=== PATIENT | female | born 1995 | race Caucasian/White ===

== ENCOUNTER 2020-04-07 09:22 | Inpatient (IN) | payer OTHER ==
[~2020-04-07] VITALS: Ht 157.5 cm; Wt 54.0 kg
--- NOTE | 2020-04-07 | NUR ---
NURSE NOTES: INFORMED OF PATIENT'S CBC RESULTS OF 13.5. RECEIVED ORDERS TO CALL MD IF HBG DROPS BELOW 12. WILL FOLLOW UP WITH THE NEXT CBC DRAWS. Addendum: 04/08/20 at 0224 by Shelly Singh RN WRONG TIME STAMP.
--- NOTE | 2020-04-07 09:35 | NUR ---
ED Nurse Note: Pt from home walked in due to vaginal bleeding and lower abd cramping. Pt states she had intermittent light spotting x 1 month and unable to remember her LMP. Also reports, her bleeding started to get heavy this past few days. Hx of miscarriage. AAO x4 ambulatory with non labored breathing.
--- NOTE | 2020-04-07 09:50 | Emergency Room Report ---
History of Present Illness General Chief Complaint: Complications Source: Patient Present Illness HPI Disclaimer: Please note that this report is being documented using [employer] technology. This can lead to erroneous entry secondary to incorrect interpretation by the dictating instrument. HPI: 24-year-old female female approximately 6 weeks by dates presents for vaginal bleeding. Patient states that she was diagnosed with last week. Had an ultrasound that did not demonstrate any evidence of IUP, has been followed by her primary doctor however for the past 2 days patient has had vaginal spotting. With abdominal cramping. Cramping is approximately 10 out of 10 lower abdomen and nonradiating. Nothing makes it better or worse. She denies any fevers. She does complain of nausea and occasional vomiting. Allergies: Coded Allergies: SULFA (SULFONAMIDE ANTIBIOTICS) (Verified Allergy, Severe, Rash, 04/07/20) COVID-19 Screening Contact w/high risk pt: No Recent Travel to affected area: No Experienced COVID-19 symptoms?: No Patient History Last Menstrual Period: unk Now: Yes : 2 Para: 0 Reviewed Nursing Documentation: PMH: Agreed; PSxH: Agreed Nursing Documentation-PMH Past Medical History: No Stated History Review of Systems All Other Systems: negative except mentioned in HPI Physical Exam Vital Signs Date Time Temp Pulse Resp B/P (MAP) Pulse Ox O2 Delivery O2 Flow Rate FiO2 04/07/20 09:28 98.1 77 18 135/97 (110) 98 Room Air Sp02 EP Interpretation: reviewed, normal General Appearance: well appearing, no apparent distress Head: normocephalic, atraumatic Eyes: bilateral eye PERRL, bilateral eye EOMI ENT: hearing grossly normal, moist mucus membranes Neck: full range of motion, supple Respiratory: lungs clear, normal breath sounds, no rhonchi, no respiratory distress, no retraction, no wheezing Cardiovascular #1: normal peripheral pulses, regular rate, rhythm, no murmur Gastrointestinal: soft, non-distended, no guarding, tenderness - Suprapubic tenderness noted Neurologic: alert, oriented x3, no focal defects Skin: normal color, warm/dry Procedures Critical Care Time Critical Care Time Critical care time is made on the patient due to presentation with possible ectopic concerning for ruptured ectopic . Critical care time is approximately 40 minutes and excludes procedures. This included discussion with consultants. Medical Decision Making Diagnostic Impression: Primary Impression: Possible ruptured ectopic Additional Impression: Lower abdominal pain ER Course MDM-patient presented for lower abdominal pain and vaginal bleeding. This is an early . Differential included but not limited to spontaneous miscarriage, threatened miscarriage, ectopic , UTI to name a few. Laboratory studies were ordered hCG ordered IV fluids and Zofran given, analgesics given ultrasound ordered. Clinical course-patient hCG was around 769. Previous hCG 1 week ago was 790. Ultrasound demonstrated concern for possible ruptured ectopic . There was free fluid in the abdomen. Obvious IUP visualized. I spoke with QUALITATIVE FIELD PROJECT MANAGER, Dr. Davila who did consult on the patient. At this time she did not recommend emergent surgical intervention as patient had a normal hemoglobin with stable vital signs and it is possible patient has a ruptured ovarian cyst in addition to a spontaneous miscarriage. Patient's hemoglobin was 16 repeat hemoglobin 14.. Plan is to observe patient overnight in the hospital with serial exams and serial hemoglobin. She was admitted to the hospitalist. Patient updated at bedside. Laboratory Tests Test 04/07/20 09:33 04/07/20 10:00 04/07/20 13:17 White Blood Count 5.1 K/UL (4.8-10.8) 10.2 K/UL (4.8-10.8) # Red Blood Count 5.01 M/UL (4.20-5.40) 4.41 M/UL (4.20-5.40) Hemoglobin 16.1 G/DL (12.0-16.0) H 14.2 G/DL (12.0-16.0) Hematocrit 45.0 % (37.0-47.0) 39.5 % (37.0-47.0) Mean Corpuscular Volume 90 FL (80-99) 90 FL (80-99) Mean Corpuscular Hemoglobin 32.1 PG (27.0-31.0) H 32.2 PG (27.0-31.0) H Mean Corpuscular Hemoglobin Concent 35.7 G/DL (32.0-36.0) 36.0 G/DL (32.0-36.0) Red Cell Distribution Width 10.8 % (11.6-14.8) L 10.7 % (11.6-14.8) L Platelet Count 293 K/UL (150-450) 264 K/UL (150-450) Mean Platelet Volume 7.3 FL (6.5-10.1) 7.7 FL (6.5-10.1) Neutrophils (%) (Auto) 57.7 % (45.0-75.0) 81.2 % (45.0-75.0) H Lymphocytes (%) (Auto) 34.2 % (20.0-45.0) 14.1 % (20.0-45.0) L Monocytes (%) (Auto) 5.7 % (1.0-10.0) 3.9 % (1.0-10.0) Eosinophils (%) (Auto) 1.0 % (0.0-3.0) 0.2 % (0.0-3.0) Basophils (%) (Auto) 1.4 % (0.0-2.0) 0.6 % (0.0-2.0) Urine Color Yellow Urine Appearance Clear Urine pH 6 (4.5-8.0) Urine Specific [place] 1.025 (1.005-1.035) Urine Protein 1+ (NEGATIVE) H Urine Glucose (UA) Negative (NEGATIVE) Urine Ketones 3+ (NEGATIVE) H Urine Blood 5+ (NEGATIVE) H Urine Nitrite Negative (NEGATIVE) Urine Bilirubin Negative (NEGATIVE) Urine Urobilinogen Normal MG/DL (0.0-1.0) Urine Leukocyte Esterase Negative (NEGATIVE) Urine RBC 10-15 /HPF (0 - 2) H Urine WBC 0-2 /HPF (0 - 2) Urine Squamous Epithelial Cells Many /LPF (NONE/OCC) H Urine Bacteria Few /HPF (NONE) Urine HCG, Qualitative Positive (NEGATIVE) Sodium Level 143 MMOL/L (136-145) Potassium Level 3.9 MMOL/L (3.5-5.1) Chloride Level 104 MMOL/L (98-107) Carbon Dioxide Level 27 MMOL/L (21-32) Anion Gap 12 mmol/L (5-15) Blood Urea Nitrogen 11 mg/dL (7-18) Creatinine 0.8 MG/DL (0.55-1.30) Estimated Glomerular Filtration Rate > 60 mL/min (>60) Glucose Level 98 MG/DL (74-106) Calcium Level 9.3 MG/DL (8.5-10.1) Total Bilirubin 2.9 MG/DL (0.2-1.0) H Direct Bilirubin 0.3 MG/DL (0.0-0.3) Aspartate Amino Transferase (AST) 23 U/L (15-37) Alanine Aminotransferase (ALT) 22 U/L (12-78) Alkaline Phosphatase 54 U/L (46-116) Total Protein 8.0 G/DL (6.4-8.2) Albumin 4.6 G/DL (3.4-5.0) Globulin 3.4 g/dL Albumin/Globulin Ratio 1.4 (1.0-2.7) Human Chorionic Gonadotropin, Quant 769 mIU/mL (1-6) H Prothrombin Time 10.4 SEC (9.30-11.50) Prothrombin Time INR 1.0 (0.9-1.1) Activated Partial Thromboplast Time 25 SEC (23-33) Last Vital Signs Date Time Temp Pulse Resp B/P (MAP) Pulse Ox O2 Delivery O2 Flow Rate FiO2 04/07/20 09:28 98.1 77 18 135/97 (110) 98 Room Air Disposition: ADMITTED INPATIENT Condition: Serious Physician Consult: Juan R Colby M.D. April 07, 2020 09:50
--- NOTE | 2020-04-07 10:11 | NUR ---
ED Nurse Note: Collected blood/urine then sent. US staff at the bed side.
[2020-04-07 10:18] LABS: BASOPHILS % (AUTO) 1.4 % (0.0-2.0); HEMOGLOBIN 16.1 G/DL (12.0-16.0); LYMPHOCYTES % (AUTO) 34.2 % (20.0-45.0); MEAN CORPUSCULAR VOLUME 90 FL (80-99); MONOCYTES % (AUTO) 5.7 % (1.0-10.0); NEUTROPHILS % (AUTO) 57.7 % (45.0-75.0); PLATELET COUNT 293 K/UL (150-450); RED BLOOD COUNT 5.01 M/UL (4.20-5.40); RED CELL DISTRIBUTION WIDTH 10.8 % (11.6-14.8); WHITE BLOOD COUNT 5.1 K/UL (4.8-10.8)
[2020-04-07 10:28] LABS: ANION GAP 12 mmol/L (5-15); BLOOD UREA NITROGEN 11 mg/dL (7-18); CALCIUM 9.3 MG/DL (8.5-10.1); CARBON DIOXIDE 27 MMOL/L (21-32); CHLORIDE 104 MMOL/L (98-107); CREATININE 0.8 MG/DL (0.55-1.30); POTASSIUM 3.9 MMOL/L (3.5-5.1); SODIUM 143 MMOL/L (136-145)
[2020-04-07 10:33] VITALS: BP 121/81
[2020-04-07 10:35] LABS: ALANINE AMINOTRANSFERASE 22 U/L (12-78); ALBUMIN 4.6 G/DL (3.4-5.0); ALBUMIN/GLOBULIN RATIO 1.4 (1.0-2.7); ALKALINE PHOSPHATASE 54 U/L (46-116); ASPARTATE AMINO TRANSFERASE 23 U/L (15-37); BILIRUBIN,TOTAL 2.9 MG/DL (0.2-1.0)
[2020-04-07 10:43] LABS: APPEARANCE,URINE CLEAR; BILIRUBIN, URINE NEGATIVE (NEGATIVE); GLUCOSE, URINE (UA) NEGATIVE (NEGATIVE); KETONES,URINE 3+ (NEGATIVE); LEUKOCYTE ESTERASE ,URINE NEGATIVE (NEGATIVE); NITRITE,URINE NEGATIVE (NEGATIVE); PH,URINE 6 (4.5-8.0); PROTEIN,URINE 1+ (NEGATIVE); UROBILINOGEN,URINE NORMAL MG/DL (0.0-1.0)
[2020-04-07 10:45] LABS: COLOR,URINE YELLOW
--- NOTE | 2020-04-07 10:45 | NUR ---
ED Nurse Note: Called denise from lab to ff up with add on order of PT/PTT.
[2020-04-07 10:54] LABS: BILIRUBIN,DIRECT 0.3 MG/DL (0.0-0.3)
--- NOTE | 2020-04-07 10:59 | NUR ---
HAND-OFF: Report given to Ernesto BARNES.
--- NOTE | 2020-04-07 11:00 | NUR ---
ED Nurse Note: Received report from Stefanie BARNES. Pt alert and oriented,verbally responsive. Ambulatory. Not in any distress.
--- NOTE | 2020-04-07 11:17 | Diagnostic Imaging Report ---
Indication: Pelvic pain, positive test, beta hCG 769, vaginal bleeding Technique: Transabdominal and transvaginal images. Doppler interrogation of the ovaries Comparison: none Findings: The uterus measures 6.8 cm length by 3.1 cm AP. The endometrium measures 2 mm thick. No intrauterine demonstrated. No myometrial abnormality. There is a moderate moderate to large amount of free pelvic fluid. The right ovary measures 3 cm in length, demonstrates normal blood flow. There is what appears to be some hyperechoic material surrounding the right ovary. This could represent blood. No definite adnexal gestational sac demonstrated, however. The left ovary measures 3.5 cm in length. It demonstrates normal blood flow. Impression: No intrauterine demonstrated. Differential considerations include spontaneous , very early , ectopic Material surrounding the right ovary may represent blood. This raises concern for possible ruptured ectopic in this area, although a gestational sac is not demonstrated. Correlate with clinical findings. Considerable free pelvic fluid. Findings discussed by phone with Dr. Lopez in the emergency room at the time of interpretation
[2020-04-07 12:00] VITALS: BP 119/76
--- NOTE | 2020-04-07 13:21 | NUR ---
ED Nurse Note: repeat cbc blood samples sent to lab
[2020-04-07 14:00] VITALS: BP 126/82
[2020-04-07 14:00] LABS: BASOPHILS % (AUTO) 0.6 % (0.0-2.0); EOSINOPHILS % (AUTO) 0.2 % (0.0-3.0); HEMATOCRIT 39.5 % (37.0-47.0); HEMOGLOBIN 14.2 G/DL (12.0-16.0); LYMPHOCYTES % (AUTO) 14.1 % (20.0-45.0); MEAN CORPUSCULAR VOLUME 90 FL (80-99); MONOCYTES % (AUTO) 3.9 % (1.0-10.0); NEUTROPHILS % (AUTO) 81.2 % (45.0-75.0); PLATELET COUNT 264 K/UL (150-450); RED BLOOD COUNT 4.41 M/UL (4.20-5.40); RED CELL DISTRIBUTION WIDTH 10.7 % (11.6-14.8); WHITE BLOOD COUNT 10.2 K/UL (4.8-10.8)
--- NOTE | 2020-04-07 14:54 | Consultation ---
Consult Note Consult Note GYNECOLOGY CONSULTATION REPORT CC: Vaginal bleeding, r/o ectopic HPI: Patient is a 24yo who presents with 2 day history of intermittent [id number] lower abdominal pain and vaginal bleeding. Patient had a positive test and ultrasound last week, however no IUP and Beta-hCG last week was 790. She reports that she has been spotting for the last 3-4d but 2d ago her bleeding became heavier and was associated with cramping in her lower abdomen that radiated to her RLQ. She reports occasional RUQ pain and discomfort with taking a deep breath, however her pain is not exacerbated by laying flat. She appears overall comfortable and is in no acute distress. Her pain is currently mild, however it has waxed and waned over the last 2 days and she fears it could return severe once more. Today her ultrasound was notable for free fluid and some fluid collections around the right ovary however no clear ectopic noted, and free fluid not necessarily consistent with hemoperitoneum. She states that her pain is improved s/p Tylenol and she is considering leaving AMA. She has follow up ultrasound scheduled for Saturday through her PCP. PMH: Denies hx of HTN, DM, asthma, or thyroid dz PSH: D&C for TAB 5y ago MEDS: None ALLERGIES: Sulfa (rash) OBHX: - TAB x 1, D&C - 5y ago GYNHX: Last INNOVATION MANAGER visit 2y ago, no hx abnl Pap, no known hx of cysts or fibroids SOCHX: Lives with roommate, is self-supporting. Not in contact with family. Denies regular use of T/E/D, occasional marijuana and alcohol FAMHX: History of colon CA on mother's side, last known family member affected was a great grandparent VITALS: Pulse 66, BP 119/76, O2 99% RA, RR 18, T 98.1F EXAM: Gen: NAD, sitting up in bed, appears comfortable HEENT: OP clear, MMM Neck: No gross thyromegaly CV: No tachycardia Pulm: No increased work of breathing, no orthopnea or pain on deep inspiration during exam Abd: Soft, mild to moderate TTP in RLQ, moderate TTP in suprapubic region, no rebound or guarding, no peritoneal signs Pelvic: NEFG, no masses or lesions. Bimanual revealed scant dark red blood in vault, cervix closed, mild TTP in bladder region Ext: no calf TTP MSK: FROM Neuro: Intact grossly LABS: Test 04/07/20 09:33 04/07/20 10:00 04/07/20 13:17 White Blood Count 5.1 K/UL (4.8-10.8) 10.2 K/UL (4.8-10.8) # Red Blood Count 5.01 M/UL (4.20-5.40) 4.41 M/UL (4.20-5.40) Hemoglobin 16.1 G/DL (12.0-16.0) H 14.2 G/DL (12.0-16.0) Hematocrit 45.0 % (37.0-47.0) 39.5 % (37.0-47.0) Mean Corpuscular Volume 90 FL (80-99) 90 FL (80-99) Mean Corpuscular Hemoglobin 32.1 PG (27.0-31.0) H 32.2 PG (27.0-31.0) H Mean Corpuscular Hemoglobin Concent 35.7 G/DL (32.0-36.0) 36.0 G/DL (32.0-36.0) Red Cell Distribution Width 10.8 % (11.6-14.8) L 10.7 % (11.6-14.8) L Platelet Count 293 K/UL (150-450) 264 K/UL (150-450) Mean Platelet Volume 7.3 FL (6.5-10.1) 7.7 FL (6.5-10.1) Neutrophils (%) (Auto) 57.7 % (45.0-75.0) 81.2 % (45.0-75.0) H Lymphocytes (%) (Auto) 34.2 % (20.0-45.0) 14.1 % (20.0-45.0) L Monocytes (%) (Auto) 5.7 % (1.0-10.0) 3.9 % (1.0-10.0) Eosinophils (%) (Auto) 1.0 % (0.0-3.0) 0.2 % (0.0-3.0) Basophils (%) (Auto) 1.4 % (0.0-2.0) 0.6 % (0.0-2.0) Urine Color Yellow Urine Appearance Clear Urine pH 6 (4.5-8.0) Urine Specific [place] 1.025 (1.005-1.035) Urine Protein 1+ (NEGATIVE) H Urine Glucose (UA) Negative (NEGATIVE) Urine Ketones 3+ (NEGATIVE) H Urine Blood 5+ (NEGATIVE) H Urine Nitrite Negative (NEGATIVE) Urine Bilirubin Negative (NEGATIVE) Urine Urobilinogen Normal MG/DL (0.0-1.0) Urine Leukocyte Esterase Negative (NEGATIVE) Urine RBC 10-15 /HPF (0 - 2) H Urine WBC 0-2 /HPF (0 - 2) Urine Squamous Epithelial Cells Many /LPF (NONE/OCC) H Urine Bacteria Few /HPF (NONE) Urine HCG, Qualitative Positive (NEGATIVE) Sodium Level 143 MMOL/L (136-145) Potassium Level 3.9 MMOL/L (3.5-5.1) Chloride Level 104 MMOL/L (98-107) Carbon Dioxide Level 27 MMOL/L (21-32) Anion Gap 12 mmol/L (5-15) Blood Urea Nitrogen 11 mg/dL (7-18) Creatinine 0.8 MG/DL (0.55-1.30) Estimated Glomerular Filtration Rate > 60 mL/min (>60) Glucose Level 98 MG/DL (74-106) Calcium Level 9.3 MG/DL (8.5-10.1) Total Bilirubin 2.9 MG/DL (0.2-1.0) H Direct Bilirubin 0.3 MG/DL (0.0-0.3) Aspartate Amino Transferase (AST) 23 U/L (15-37) Alanine Aminotransferase (ALT) 22 U/L (12-78) Alkaline Phosphatase 54 U/L (46-116) Total Protein 8.0 G/DL (6.4-8.2) Albumin 4.6 G/DL (3.4-5.0) Globulin 3.4 g/dL Albumin/Globulin Ratio 1.4 (1.0-2.7) Human Chorionic Gonadotropin, Quant 769 mIU/mL (1-6) H Prothrombin Time 10.4 SEC (9.30-11.50) Prothrombin Time INR 1.0 (0.9-1.1) Activated Partial Thromboplast Time 25 SEC (23-33) IMAGING: Pelvic US: Findings: The uterus measures 6.8 cm length by 3.1 cm AP. The endometrium measures 2 mm thick. No intrauterine demonstrated. No myometrial abnormality. There is a moderate moderate to large amount of free pelvic fluid. The right ovary measures 3 cm in length, demonstrates normal blood flow. There is what appears to be some hyperechoic material surrounding the right ovary. This could represent blood. No definite adnexal gestational sac demonstrated, however. The left ovary measures 3.5 cm in length. It demonstrates normal blood flow. Impression: No intrauterine demonstrated. Differential considerations include spontaneous , very early , ectopic Material surrounding the right ovary may represent blood. This raises concern for possible ruptured ectopic in this area, although a gestational sac is not demonstrated. Correlate with clinical findings. Considerable free pelvic fluid. Assessment/Plan 24yo with of unknown location, r/o ectopic - Patient does not have an acute abdomen and her Beta-hCG has not risen from previous (790 last week, 769 today) - Patient received 1L IV fluids in ER, drop in H/H could be dilutional, thus recommend serial CBCs to monitor for bleeding (in conjunction with clinical picture) - Unclear if patient had a spontaneous loss (miscarriage) given her heavier bleeding with midline cramping over the last 2 days - No clear ectopic on US and no peritoneal signs, therefore no indication for emergent surgery at this time, however I recommend inpatient monitoring and serial labs - Differential diagnosis discussed with the patient at length - DDx includes SAB , ectopic, ruptured cyst - Patient is considering leaving A because she feels her condition has overall improved s/p Tylenol in the ED and is concerned about cost. She states that she has follow up with her PCP and repeat US scheduled for Saturday - Discussed with the patient that if her pain worsens or her labs show any sign of worsening clinical condition, I would recommend diagnostic laparoscopy - Recommend NPO, repeat Beta-hCG every 12 hours, repeat CBC every 6 hours and IV fluids for hydration - Will monitor patient condition and determine need for OR within 24 hours - Patient counseled against leaving AMA, however she desires time to decide and will discuss with ED physician - All questions answered Thank you for this interesting consult. Signed: MD Giovanni Naidu Carla M.D. April 07, 2020 14:54
[2020-04-07 16:00] VITALS: BP 121/73
--- NOTE | 2020-04-07 16:13 | NUR ---
ED Nurse Note: Patient able to walk to the restroom with stable gait.
--- NOTE | 2020-04-07 17:30 | NUR ---
NURSE NOTES: received report from CAMERON Spears. patient will be admitted to room 403-[address] nabila urbano.
--- NOTE | 2020-04-07 17:38 | NUR ---
ED Nurse Note: Report given to Joaquin BARNES.
[2020-04-07 18:15] VITALS: BP 118/70
--- NOTE | 2020-04-07 18:15 | NUR ---
TRANSFER TO FLOOR: Patient transferred to [facility]. Report given to Joaquin. Pt alert and orientedx4, verbally responsive. Not in any distress. IV line on left AC 20g patent and intact. No skin issues. No isolation. All belongings sent with the patient.
--- NOTE | 2020-04-07 18:25 | NUR ---
NURSE NOTES: patient is admitted under care dx of possible miscarriage. no respiratory distress noted. pain on abd area. skin intact. vaginal bleeding. no hx of dz. no home medications. IV on LAC 20 intact. will f/u for new admission orders.
--- NOTE | 2020-04-07 18:33 | NUR ---
NURSE NOTES: patient is crying for the pain 10/10. notified Dr. dahl for pain meds and new admission orders.
--- NOTE | 2020-04-07 18:48 | NUR ---
NURSE NOTES: VS. BP136/72, HR67, RR 20, T97.5, O2sat 99% on room air.
[2020-04-07] MEDS ORDERED: Morphine Sulfate 2mg/ml Inj(IV/IM USE ONLY) IVP PRN (19:00)
[2020-04-07] MEDS ORDERED: Morphine Sulfate 4mg/ml Inj (IV USE ONLY) IVP PRN (19:00)
--- NOTE | 2020-04-07 19:24 | NUR ---
HAND-OFF: Report given to CAMERON Bravo.
--- NOTE | 2020-04-07 19:30 | NUR ---
NURSE NOTES: RECEIVED PATIENT FROM CAMERON BUCKNER. PATIENT IS AWAKE, AAOX4, ON ROOM AIR, C/O 10/10 PAIN IN ABDOMEN RADIATING TO BACK AND CHEST. RECEIVED ORDERS FROM DR. WITT FOR PRN PAIN MEDS, WILL FOLLOW UP. PATIENT REPORTED MODERATE VAGINAL BLEEDING. IV ON LEFT AC INTACT AND PATENT. BED IS LOCKED AND LOW, BED ALARMS ACTIVE, SIDE RAILS UPX2 AND CALL LIGHT IS WITHIN REACH. WILL CONTINUE TO MONITOR.
--- NOTE | 2020-04-07 20:00 | NUR ---
NURSE NOTES: SPOKE TO DR. BRITO REGARDING PATIENT'S CONDITION. RECEIVED ORDERS FOR CBC AND BHCG LABS. WILL FOLLOW UP RESULTS WITH .
[2020-04-07 20:53] VITALS: BP 136/72
[2020-04-07] MEDS: D5NS 1,000 ML IV SCH (21:37)
--- NOTE | 2020-04-07 22:10 | NUR ---
NURSE NOTES: RECEIVED ADMISSION ORDERS FROM DR. WITT. INFORMED MD OF PATIENT'S CONDITION.
[2020-04-07 22:39] LABS: BASOPHILS % (AUTO) 0.9 % (0.0-2.0); EOSINOPHILS % (AUTO) 0.3 % (0.0-3.0); HEMATOCRIT 40.7 % (37.0-47.0); HEMOGLOBIN 13.5 G/DL (12.0-16.0); LYMPHOCYTES % (AUTO) 21.1 % (20.0-45.0); MEAN CORPUSCULAR VOLUME 96 FL (80-99); MONOCYTES % (AUTO) 4.2 % (1.0-10.0); NEUTROPHILS % (AUTO) 73.6 % (45.0-75.0); PLATELET COUNT 258 K/UL (150-450); RED BLOOD COUNT 4.25 M/UL (4.20-5.40); RED CELL DISTRIBUTION WIDTH 11.6 % (11.6-14.8); WHITE BLOOD COUNT 8.5 K/UL (4.8-10.8)
[2020-04-08] VITALS: BP 106/55
--- NOTE | 2020-04-08 | NUR ---
NURSE NOTES: INFORMED OF PATIENT'S CBC RESULTS OF 13.5. RECEIVED ORDERS TO CALL MD IF HBG DROPS BELOW 12. WILL FOLLOW UP WITH THE NEXT CBC DRAWS.
[2020-04-08 04:00] VITALS: BP 110/62
[2020-04-08] MEDS: D5NS 1,000 ML IV SCH ×3 (04:17→20:15)
[2020-04-08 05:22] LABS: BASOPHILS % (AUTO) 1.2 % (0.0-2.0); EOSINOPHILS % (AUTO) 0.7 % (0.0-3.0); HEMOGLOBIN 12.8 G/DL (12.0-16.0); LYMPHOCYTES % (AUTO) 31.1 % (20.0-45.0); MEAN CORPUSCULAR VOLUME 89 FL (80-99); MONOCYTES % (AUTO) 7.3 % (1.0-10.0); NEUTROPHILS % (AUTO) 59.7 % (45.0-75.0); PLATELET COUNT 231 K/UL (150-450); RED BLOOD COUNT 3.94 M/UL (4.20-5.40); RED CELL DISTRIBUTION WIDTH 10.5 % (11.6-14.8)
[2020-04-08 05:45] LABS: PHOSPHORUS 4.1 MG/DL (2.5-4.9)
--- NOTE | 2020-04-08 07:50 | NUR ---
NURSE NOTES: Received report from Shelly, RN. Patient in bed, sleeping. On room air, no signs of distress or labored breathing. IV intact, patent, and infusing IV fluids. Bed in lowest position with call light in reach. Will continue with plan of care.
--- NOTE | 2020-04-08 07:53 | NUR ---
HAND-OFF: Report given to CAMERON James.
[2020-04-08 08:00] VITALS: BP 120/63
--- NOTE | 2020-04-08 09:57 | NUR ---
*-* NO INSURANCE INFORMATION IN THE BAR UNABLE TO SEND CLINICALS OR REVIEWS *-*
[2020-04-08 10:53] LABS: BASOPHILS % (AUTO) 1.2 % (0.0-2.0); EOSINOPHILS % (AUTO) 0.6 % (0.0-3.0); HEMATOCRIT 34.1 % (37.0-47.0); HEMOGLOBIN 12.4 G/DL (12.0-16.0); LYMPHOCYTES % (AUTO) 27.7 % (20.0-45.0); MEAN CORPUSCULAR VOLUME 89 FL (80-99); MONOCYTES % (AUTO) 5.8 % (1.0-10.0); NEUTROPHILS % (AUTO) 64.8 % (45.0-75.0); PLATELET COUNT 219 K/UL (150-450); RED BLOOD COUNT 3.83 M/UL (4.20-5.40); RED CELL DISTRIBUTION WIDTH 10.5 % (11.6-14.8); WHITE BLOOD COUNT 4.7 K/UL (4.8-10.8)
[2020-04-08 11:14] LABS: ALANINE AMINOTRANSFERASE 18 U/L (12-78); ALBUMIN 3.5 G/DL (3.4-5.0); ALBUMIN/GLOBULIN RATIO 1.3 (1.0-2.7); ALKALINE PHOSPHATASE 37 U/L (46-116); ANION GAP 7 mmol/L (5-15); ASPARTATE AMINO TRANSFERASE 15 U/L (15-37); BLOOD UREA NITROGEN 10 mg/dL (7-18); CALCIUM 8.3 MG/DL (8.5-10.1); CARBON DIOXIDE 26 MMOL/L (21-32); CHLORIDE 107 MMOL/L (98-107); CREATININE 0.7 MG/DL (0.55-1.30); POTASSIUM 4.1 MMOL/L (3.5-5.1); SODIUM 140 MMOL/L (136-145)
--- NOTE | 2020-04-08 11:38 | Consultation ---
History of Present Illness General Date patient seen: April 08, 2020 Chief Complaint: Complications Present Illness HPI 24-year-old female, approximately 6 weeks by dates presented to ER for vaginal bleeding with abdominal cramping, 10 out of 10 lower abdomen and nonradiating. She was diagnosed to have ruptured ectopic and admitted for further management. Allergies: Coded Allergies: SULFA (SULFONAMIDE ANTIBIOTICS) (Verified Allergy, Severe, Rash, 04/07/20) Medication History No Active Prescriptions or Reported Meds Patient History Healthcare decision maker Resuscitation status Advanced Directive on File Past Medical/Surgical History Past Medical/Surgical History: (1) No significant past medical history Review of Systems All Other Systems: negative except mentioned in HPI Physical Exam General Appearance: WD/WN Lines, tubes and drains: peripheral HEENT: atraumatic Neck: non-tender Respiratory/Chest: chest wall non-tender Breasts: no masses Cardiovascular/Chest: normal peripheral pulses Abdomen: normal bowel sounds, non tender Genitourinary/Rectal: normal genital exam Extremities: normal range of motion Skin Exam: normal pigmentation Neurologic: registration scheduling specialist II-XII grossly normal Last 24 Hour Vital Signs Date Time Temp Pulse Resp B/P (MAP) Pulse Ox O2 Delivery O2 Flow Rate FiO2 04/08/20 04:00 97.8 56 18 110/62 (78) 99 04/08/20 00:00 97.9 62 18 106/55 (72) 97 04/07/20 21:00 Room Air 04/07/20 20:53 97.5 67 20 136/72 (93) 99 04/07/20 20:52 Room Air 04/07/20 18:15 98.1 69 16 118/70 95 Room Air 04/07/20 18:15 98.1 69 16 118/70 95 Room Air 04/07/20 16:00 98.1 62 19 121/73 96 Room Air 04/07/20 14:00 98.1 64 19 126/82 97 Room Air 04/07/20 12:00 98.1 59 18 119/76 99 Room Air Intake and Output 04/07/20 04/08/20 19:00 07:00 Intake Total 1000 ml 1120 ml Balance 1000 ml 1120 ml Intake Oral 120 ml IV Total 1000 ml 1000 ml # Voids 1 2 Laboratory Tests Test 04/07/20 13:17 04/07/20 22:27 04/08/20 04:25 04/08/20 10:30 White Blood Count 10.2 K/UL (4.8-10.8) # 8.5 K/UL (4.8-10.8) 6.0 K/UL (4.8-10.8) 4.7 K/UL (4.8-10.8) L Red Blood Count 4.41 M/UL (4.20-5.40) 4.25 M/UL (4.20-5.40) 3.94 M/UL (4.20-5.40) L 3.83 M/UL (4.20-5.40) L Hemoglobin 14.2 G/DL (12.0-16.0) 13.5 G/DL (12.0-16.0) 12.8 G/DL (12.0-16.0) 12.4 G/DL (12.0-16.0) Hematocrit 39.5 % (37.0-47.0) 40.7 % (37.0-47.0) 35.0 % (37.0-47.0) L 34.1 % (37.0-47.0) L Mean Corpuscular Volume 90 FL (80-99) 96 FL (80-99) 89 FL (80-99) 89 FL ( 80-99) Mean Corpuscular Hemoglobin 32.2 PG (27.0-31.0) H 31.7 PG (27.0-31.0) H 32.4 PG (27.0-31.0) H 32.4 PG (27.0-31.0) H Mean Corpuscular Hemoglobin Concent 36.0 G/DL (32.0-36.0) 33.1 G/DL (32.0-36.0) 36.6 G/DL (32.0-36.0) H 36.4 G/DL (32.0-36.0) H Red Cell Distribution Width 10.7 % (11.6-14.8) L 11.6 % (11.6-14.8) 10.5 % (11.6-14.8) L 10.5 % (11.6-14.8) L Platelet Count 264 K/UL (150-450) 258 K/UL (150-450) 231 K/UL (150-450) 219 K/UL (150-450) Mean Platelet Volume 7.7 FL (6.5-10.1) 9.3 FL (6.5-10.1) 7.2 FL (6.5-10.1) 7.1 FL (6.5-10.1) Neutrophils (%) (Auto) 81.2 % (45.0-75.0) H 73.6 % (45.0-75.0) 59.7 % (45.0-75.0) 64.8 % (45.0-75.0) Lymphocytes (%) (Auto) 14.1 % (20.0-45.0) L 21.1 % (20.0-45.0) 31.1 % (20.0-45.0) 27.7 % (20.0-45.0) Monocytes (%) (Auto) 3.9 % (1.0-10.0) 4.2 % (1.0-10.0) 7.3 % (1.0-10.0) 5.8 % (1.0-10.0) Eosinophils (%) (Auto) 0.2 % (0.0-3.0) 0.3 % (0.0-3.0) 0.7 % (0.0-3.0) 0.6 % (0.0-3.0) Basophils (%) (Auto) 0.6 % (0.0-2.0) 0.9 % (0.0-2.0) 1.2 % (0.0-2.0) 1.2 % (0.0-2.0) Human Chorionic Gonadotropin, Quant 479 mIU/mL (1-6) H Pending Prothrombin Time 10.7 SEC (9.30-11.50) Prothromb Time International Ratio 1.0 (0.9-1.1) Activated Partial Thromboplast Time 23 SEC (23-33) Phosphorus Level 4.1 MG/DL (2.5-4.9) Magnesium Level 1.9 MG/DL (1.8-2.4) Sodium Level 140 MMOL/L (136-145) Potassium Level 4.1 MMOL/L (3.5-5.1) Chloride Level 107 MMOL/L (98-107) Carbon Dioxide Level 26 MMOL/L (21-32) Anion Gap 7 mmol/L (5-15) Blood Urea Nitrogen 10 mg/dL (7-18) Creatinine 0.7 MG/DL (0.55-1.30) Estimat Glomerular Filtration Rate > 60 mL/min (>60) Glucose Level 109 MG/DL (74-106) H Calcium Level 8.3 MG/DL (8.5-10.1) L Total Bilirubin 2.0 MG/DL (0.2-1.0) H Direct Bilirubin Pending Aspartate Amino Transf (AST/SGOT) 15 U/L (15-37) Alanine Aminotransferase (ALT/SGPT) 18 U/L (12-78) Alkaline Phosphatase 37 U/L (46-116) L Total Protein 6.1 G/DL (6.4-8.2) L Albumin 3.5 G/DL (3.4-5.0) Globulin 2.6 g/dL Albumin/Globulin Ratio 1.3 (1.0-2.7) Height (Feet): 5 Height (Inches): 2.00 Weight (Pounds): 119 Medications Current Medications Medications (Trade) Dose Ordered Sig/Darren Route PRN Reason Start Time Stop Time Status Last Admin Dose Admin Acetaminophen (Tylenol) 650 mg Q6H PRN ORAL FEVER AND MILD PAIN 04/07/20 21:00 05/07/20 20:59 04/08/20 07:10 Dextrose/Sodium Chloride 1,000 ml @ 125 mls/hr Q8H IV 04/07/20 20:15 05/07/20 20:14 04/08/20 04:17 Morphine Sulfate (Morphine Sulfate) 2 mg Q4H PRN IVP Moderate Pain (Pain Scale 4-6) 04/07/20 19:00 04/14/20 18:59 Morphine Sulfate (Morphine Sulfate) 4 mg Q4H PRN IVP Severe Pain (Pain Scale 7-10) 04/07/20 19:00 04/14/20 18:59 04/07/20 19:42 Ondansetron HCl (Zofran) 4 mg Q4H PRN IVP Nausea & Vomiting 04/07/20 21:00 05/07/20 20:59 Assessment/Plan Problem List: (1) Ruptured ectopic ICD Codes: O00.90 - Unspecified ectopic without intrauterine SNOMED: [id number] Assessment/Plan: f/u by ADDRESSING MACHINE OPERATOR symptomatic management f/u h/h prbc prn dvt prophylaxis. Mehnaz Olivo MD April 08, 2020 11:38
[2020-04-08] MEDS ORDERED: Miralax 17gm pkt ORAL PRN (11:45)
[2020-04-08] MEDS ORDERED: Mylanta II UD 30ml ORAL PRN (11:45)
[2020-04-08] MEDS ORDERED: DiphenhydrAMINE 25mg Tab ORAL PRN (11:45)
[2020-04-08] MEDS ORDERED: LORazepam Inj 2mg/ml 1ml IV PRN (11:45)
[2020-04-08 12:00] VITALS: BP 119/69
[2020-04-08 12:00] LABS: BILIRUBIN,DIRECT 0.3 MG/DL (0.0-0.3)
--- NOTE | 2020-04-08 12:27 | General Progress Note ---
Progress Note Progress Note GYNECOLOGY PROGRESS NOTE Patient seen this morning at 0830. Morphine x 1 given at change of shift last night and Tylenol given overnight for pain control. This morning, the patient is able to get up and move around with minimal discomfort. Minimal vaginal bleeding. Hemodynamically stable. Vitals reviewed, WNL Exam: NAD, mild TTP in lower abdomen, worse on right, no CVAT, no rebound Labs: Test 04/07/20 09:33 04/07/20 10:00 04/07/20 13:17 04/07/20 22:27 White Blood Count 5.1 K/UL (4.8-10.8) 10.2 K/UL (4.8-10.8) 8.5 K/UL (4.8-10.8) Red Blood Count 5.01 M/UL (4.20-5.40) 4.41 M/UL (4.20-5.40) 4.25 M/UL (4.20-5.40) Hemoglobin 16.1 G/DL (12.0-16.0) 14.2 G/DL (12.0-16.0) 13.5 G/DL (12.0-16.0) Hematocrit 45.0 % (37.0-47.0) 39.5 % (37.0-47.0) 40.7 % (37.0-47.0) Mean Corpuscular Volume 90 FL (80-99) 90 FL (80-99) 96 FL (80-99) Mean Corpuscular Hemoglobin 32.1 PG (27.0-31.0) 32.2 PG (27.0-31.0) 31.7 PG (27.0-31.0) Mean Corpuscular Hemoglobin Concent 35.7 G/DL (32.0-36.0) 36.0 G/DL (32.0-36.0) 33.1 G/DL (32.0-36.0) Red Cell Distribution Width 10.8 % (11.6-14.8) 10.7 % (11.6-14.8) 11.6 % (11.6-14.8) Platelet Count 293 K/UL (150-450) 264 K/UL (150-450) 258 K/UL (150-450) Mean Platelet Volume 7.3 FL (6.5-10.1) 7.7 FL (6.5-10.1) 9.3 FL (6.5-10.1) Neutrophils (%) (Auto) 57.7 % (45.0-75.0) 81.2 % (45.0-75.0) 73.6 % (45.0-75.0) Lymphocytes (%) (Auto) 34.2 % (20.0-45.0) 14.1 % (20.0-45.0) 21.1 % (20.0-45.0) Monocytes (%) (Auto) 5.7 % (1.0-10.0) 3.9 % (1.0-10.0) 4.2 % (1.0-10.0) Eosinophils (%) (Auto) 1.0 % (0.0-3.0) 0.2 % (0.0-3.0) 0.3 % (0.0-3.0) Basophils (%) (Auto) 1.4 % (0.0-2.0) 0.6 % (0.0-2.0) 0.9 % (0.0-2.0) Urine Color Yellow Urine Appearance Clear Urine pH 6 (4.5-8.0) Urine Specific [place] 1.025 (1.005-1.035) Urine Protein 1+ (NEGATIVE) Urine Glucose (UA) Negative (NEGATIVE) Urine Ketones 3+ (NEGATIVE) Urine Blood 5+ (NEGATIVE) Urine Nitrite Negative (NEGATIVE) Urine Bilirubin Negative (NEGATIVE) Urine Urobilinogen Normal MG/DL (0.0-1.0) Urine Leukocyte Esterase Negative (NEGATIVE) Urine RBC 10-15 /HPF (0 - 2) Urine WBC 0-2 /HPF (0 - 2) Urine Squamous Epithelial Cells Many /LPF (NONE/OCC) Urine Bacteria Few /HPF (NONE) Urine HCG, Qualitative Positive (NEGATIVE) Sodium Level 143 MMOL/L (136-145) Potassium Level 3.9 MMOL/L (3.5-5.1) Chloride Level 104 MMOL/L (98-107) Carbon Dioxide Level 27 MMOL/L (21-32) Anion Gap 12 mmol/L (5-15) Blood Urea Nitrogen 11 mg/dL (7-18) Creatinine 0.8 MG/DL (0.55-1.30) Estimat Glomerular Filtration Rate > 60 mL/min (>60) Glucose Level 98 MG/DL (74-106) Calcium Level 9.3 MG/DL (8.5-10.1) Total Bilirubin 2.9 MG/DL (0.2-1.0) Direct Bilirubin 0.3 MG/DL (0.0-0.3) Aspartate Amino Transf (AST/SGOT) 23 U/L (15-37) Alanine Aminotransferase (ALT/SGPT) 22 U/L (12-78) Alkaline Phosphatase 54 U/L (46-116) Total Protein 8.0 G/DL (6.4-8.2) Albumin 4.6 G/DL (3.4-5.0) Globulin 3.4 g/dL Albumin/Globulin Ratio 1.4 (1.0-2.7) Human Chorionic Gonadotropin, Quant 769 mIU/mL (1-6) 479 mIU/mL (1-6) Prothrombin Time 10.4 SEC (9.30-11.50) Prothromb Time International Ratio 1.0 (0.9-1.1) Activated Partial Thromboplast Time 25 SEC (23-33) Test 04/08/20 04:25 04/08/20 10:30 White Blood Count 6.0 K/UL (4.8-10.8) 4.7 K/UL (4.8-10.8) Red Blood Count 3.94 M/UL (4.20-5.40) 3.83 M/UL (4.20-5.40) Hemoglobin 12.8 G/DL (12.0-16.0) 12.4 G/DL (12.0-16.0) Hematocrit 35.0 % (37.0-47.0) 34.1 % (37.0-47.0) Mean Corpuscular Volume 89 FL (80-99) 89 FL (80-99) Mean Corpuscular Hemoglobin 32.4 PG (27.0-31.0) 32.4 PG (27.0-31.0) Mean Corpuscular Hemoglobin Concent 36.6 G/DL (32.0-36.0) 36.4 G/DL (32.0-36.0) Red Cell Distribution Width 10.5 % (11.6-14.8) 10.5 % (11.6-14.8) Platelet Count 231 K/UL (150-450) 219 K/UL (150-450) Mean Platelet Volume 7.2 FL (6.5-10.1) 7.1 FL (6.5-10.1) Neutrophils (%) (Auto) 59.7 % (45.0-75.0) 64.8 % (45.0-75.0) Lymphocytes (%) (Auto) 31.1 % (20.0-45.0) 27.7 % (20.0-45.0) Monocytes (%) (Auto) 7.3 % (1.0-10.0) 5.8 % (1.0-10.0) Eosinophils (%) (Auto) 0.7 % (0.0-3.0) 0.6 % (0.0-3.0) Basophils (%) (Auto) 1.2 % (0.0-2.0) 1.2 % (0.0-2.0) Prothrombin Time 10.7 SEC (9.30-11.50) Prothromb Time International Ratio 1.0 (0.9-1.1) Activated Partial Thromboplast Time 23 SEC (23-33) Phosphorus Level 4.1 MG/DL (2.5-4.9) Magnesium Level 1.9 MG/DL (1.8-2.4) Sodium Level 140 MMOL/L (136-145) Potassium Level 4.1 MMOL/L (3.5-5.1) Chloride Level 107 MMOL/L (98-107) Carbon Dioxide Level 26 MMOL/L (21-32) Anion Gap 7 mmol/L (5-15) Blood Urea Nitrogen 10 mg/dL (7-18) Creatinine 0.7 MG/DL (0.55-1.30) Estimat Glomerular Filtration Rate > 60 mL/min (>60) Glucose Level 109 MG/DL (74-106) Calcium Level 8.3 MG/DL (8.5-10.1) Total Bilirubin 2.0 MG/DL (0.2-1.0) Direct Bilirubin 0.3 MG/DL (0.0-0.3) Aspartate Amino Transf (AST/SGOT) 15 U/L (15-37) Alanine Aminotransferase (ALT/SGPT) 18 U/L (12-78) Alkaline Phosphatase 37 U/L (46-116) Total Protein 6.1 G/DL (6.4-8.2) Albumin 3.5 G/DL (3.4-5.0) Globulin 2.6 g/dL Albumin/Globulin Ratio 1.3 (1.0-2.7) Human Chorionic Gonadotropin, Quant 529 mIU/mL (1-6) Last H/H overall stable (drawn this AM). Beta-hCG stable. Repeat CBC and Beta- hCG this afternoon at 1600, if H/H remains stable and hCG continues to decrease consider d/c home with strict return precautions. Probable SAB vs aborted/ aborting ectopic. No clear indication for emergent surgical management at this time given her overall hemodynamic and clinical stability. Will continue to monitor closely. Abbey Davila M.D. April 08, 2020 12:27
--- NOTE | 2020-04-08 12:37 | NUR ---
CASE MANAGEMENT:INITIAL REVIEW 24 YR OLD FEMALE FROM HOME CC; COMPLICATIONS SI;RUPTURED ECTOPIC 98.1 55 18 135/97 96% ON RA HGB 16.1 T-BILI 2.9 HCG 769 US+ PROTEIN, KETONES, BLOOD, RBC, SQUAMOUS OB US~No intrauterine demonstrated. Differential considerations include spontaneous , very early , ectopic . IS;APAP PO ONCE IVF NS BOLUS ADMITTED TO MED SURG @ 08 ON 04/08/20 MED SURG STATUS DCP;FROM HOME
--- NOTE | 2020-04-08 15:00 | NUR ---
NURSE NOTES: Patient received from 403 to 315 at 1500, in stable condition, VSS. Patient AOx4, calm. Denies SOB on RA, need for pain medication (rating 2/10 at this time), no NV. IV (D5NS at 125 ml/hr) via LAC, site asymptomatic. Patient reports vaginal bleeding is light, provided deborah pads, instructed patient to let me assess deborah pad the next time she goes to the restroom. Oriented patient to room and call light. All belongings transferred with patient. Call light in reach, bed in lowest position, will continue to monitor.
--- NOTE | 2020-04-08 15:15 | NUR ---
TRANSFER TO FLOOR: Patient transferred to 3east room 315-1, per nursing inspection and testing supervisor. Report given to CAMERON Herr. Belongings and medications are with patient.
[2020-04-08 15:20] VITALS: BP 116/70
--- NOTE | 2020-04-08 15:53 | History & Physical ---
History and Physical History & Physicial Sean Yarbrough MD April 08, 2020 15:53
--- NOTE | 2020-04-08 17:30 | NUR ---
NURSE NOTES: Spoke with Dr. Davila regarding 1600 labs not resulted yet, were drawn by lab at 1700, orders received for STAT CBC and HCG, lab called with STAT orders.
[2020-04-08 17:45] LABS: EOSINOPHILS % (AUTO) 0.7 % (0.0-3.0); LYMPHOCYTES % (AUTO) 37.1 % (20.0-45.0); MEAN CORPUSCULAR VOLUME 97 FL (80-99); MONOCYTES % (AUTO) 7.2 % (1.0-10.0); NEUTROPHILS % (AUTO) 54.1 % (45.0-75.0); PLATELET COUNT 211 K/UL (150-450); RED BLOOD COUNT 3.83 M/UL (4.20-5.40); RED CELL DISTRIBUTION WIDTH 11.9 % (11.6-14.8); WHITE BLOOD COUNT 4.6 K/UL (4.8-10.8)
--- NOTE | 2020-04-08 18:15 | NUR ---
NURSE NOTES: Called Dr. Davila with CBC results, HCG still pending. No further orders.
--- NOTE | 2020-04-08 19:25 | NUR ---
HAND-OFF: Report given to Alison BARNES, rounds made. Endorsed HCG lab still pending, results needs to be reported to Dr. Davila. Endorsed CBC ordered every 6 hours and HCG ordered every 12 hours.
[2020-04-08 20:00] VITALS: BP 114/66
--- NOTE | 2020-04-08 20:09 | General Progress Note ---
Progress Note Progress Note GYNECOLOGY BRIEF PROGRESS NOTE Labs and vitals reviewed. CBC stable, hCG stable, patient clinically & hemodynamically stable. Will advance diet to regular, will d/c IV fluids, will d/c IV pain meds and transition to oral pain meds and will monitor overnight. If patient remains stable overnight without intractable pain or abnormal vital signs, plan to assess in AM and anticipate d/c home with strict return precautions and follow up with PCP this Saturday. Orders provided to RN, instructions to call me directly for any concerning change to patient clinical status. AM labs ordered for 0600. Signed: Abbey Davila MD GLOBAL TRANSPORTATION MANAGER peoplesoft consultant Abbey Davila M.D. April 08, 2020 20:09
[2020-04-08] MEDS ORDERED: HYDROcodone/Acetamin 10/325 tab ORAL PRN (21:30)
--- NOTE | 2020-04-08 21:30 | NUR ---
NURSE NOTES: Received report from Carmenza BARNES. Patient is awake and oriented, no acute distress noted, reporting mild cramping pain in abdomen. IV intact, patent. Received call from Dr. Davila [facility] reported to MD, new orders received, read back, and entered. Patient updated on plan of care. Side rails upx2, bed low and locked, call light within reach.
[2020-04-08] MEDS: HYDROcodone/Acetamin 5/325 tab ORAL PRN (22:34)
[2020-04-08 23:15] LABS: BASOPHILS % (AUTO) 0.9 % (0.0-2.0); EOSINOPHILS % (AUTO) 0.7 % (0.0-3.0); HEMATOCRIT 38.3 % (37.0-47.0); HEMOGLOBIN 12.4 G/DL (12.0-16.0); LYMPHOCYTES % (AUTO) 29.7 % (20.0-45.0); MEAN CORPUSCULAR VOLUME 98 FL (80-99); MONOCYTES % (AUTO) 5.5 % (1.0-10.0); NEUTROPHILS % (AUTO) 63.2 % (45.0-75.0); PLATELET COUNT 216 K/UL (150-450); RED BLOOD COUNT 3.93 M/UL (4.20-5.40); RED CELL DISTRIBUTION WIDTH 12.4 % (11.6-14.8); WHITE BLOOD COUNT 4.4 K/UL (4.8-10.8)
--- NOTE | 2020-04-08 23:30 | History and Physical Report ---
DATE OF ADMISSION: 04/07/2020 CHIEF COMPLAINT: Lower abdominal pain, vaginal bleeding. HISTORY OF PRESENT ILLNESS: This is a 24-year-old very delightful female who denies any past medical history or past surgical history, who presented to the hospital complaining about lower abdominal pain associated with vaginal bleeding. Patient was recently diagnosed with last week with 6 weeks and patient had ultrasound did not demonstrate any evidence of intrauterine . Followed up with primary doctor. However, past 2 days patient noted to have the vaginal spotting associated with lower abdominal pelvic area cramps and pain. The pain become 10/10 in intensity, nonradiating, does not improve with any movement or bowel movement. She denies any nausea or vomiting. No fever or chills. However, she had nausea earlier, but it has been resolved. Shortly after initial evaluation in the emergency department, patient was admitted to the hospital with ruptured ectopic . PAST MEDICAL HISTORY/PAST SURGICAL HISTORY: None. Patient has a history of 2, para 0. Beta-hCG last week was noted to be 790. Patient has a D and C about 5 years ago. MEDICATIONS: At home, none. ALLERGIES: To sulfa medication, rash. DIGITAL STRATEGIST SENIOR MANAGER HISTORY: 2, para 0, 0, 1, 0 with D and C 5 years ago. SOCIAL HISTORY: No smoking, alcohol, or drugs. She lives with a roommate. 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 Occasional marijuana. Occasional alcohol. FAMILY HISTORY: Colon cancer runs in the maternal side. Otherwise, mother and father are fairly healthy. REVIEW OF SYSTEMS: Mostly as above. Denies any dysuria, frequency, or hematuria. Denies any hemoptysis or hematochezia. Complained of lower abdominal pain and cramps and vaginal bleeding. No spotting at this time. No clots. Denies any loss of consciousness. Denies any fall or head trauma. PHYSICAL EXAMINATION: VITAL SIGNS: Blood pressure 119/76, pulse of 66, respirations 18, temperature 98.1. GENERAL: Patient is awake, responsive, no acute distress. HEAD AND NECK: Pupils are equal and reactive to light. Extraocular movements intact. Neck was supple. No JVD. LUNGS: Clear. No wheezes or rales. HEART: S1, S2. Regular rate and rhythm. No murmurs or gallops. ABDOMEN: Soft, nondistended. Tenderness over suprapubic area as well as right lower quadrant. No rebound tenderness. No fluid shift. EXTREMITIES: No cyanosis, clubbing, or edema NEUROLOGIC: Cranial nerves II through XII grossly normal. Motor is 5/5 in all extremities. Gait is intact. RECTAL/GENITOURINARY: Refused and deferred. PELVIC: Examination was done by the DIGITAL STRATEGIST SENIOR MANAGER doctor, Dr. Abbey Davila. Refer to that. LABORATORY DATA: WBC of 5.1, hemoglobin 16, hematocrit 45, platelets 293. Sodium 143, potassium 3.9, chloride 104, bicarb 27, BUN 11, creatinine 0.8. Beta-hCG initially 769, repeat one is 479. PT of 10, INR 1.0, PTT of 25. Urinalysis, +3 ketone, +5 blood, 10 to 15 rbc's, negative leukocytes, negative nitrite, many squamous epithelial cells. Obstetric ultrasound, no intrauterine demonstrated. Differential consideration includes spontaneous , very early , ectopic , material surrounding the right ovary may represent blood. This is concerned for the possible ruptured ectopic in this area, although the gestational sac is not demonstrated. Consider free pelvic fluid. ASSESSMENT: Lower abdominal pain with beta-hCG positive, most likely secondary to ruptured ectopic . PLAN: Admit patient to medical floor. We will follow up with Dr. Abbey Davila' recommendation from DIGITAL STRATEGIST SENIOR MANAGER. Monitor laboratory. Kept patient NPO. Follow up with beta-hCG every 12 hours. Repeat CBC every 6 hours. IV hydration. Code status is Full Code. DVT prophylaxis, SCD. Followup with pain medication. Discussed with patient extensively with regards to plan of care. Sean Yarbrough M.D. DR: BONITA JOB#: [id number] CC:
[2020-04-09] VITALS: BP 111/65
[2020-04-09 04:00] VITALS: BP 111/71
[2020-04-09] MEDS: HYDROcodone/Acetamin 5/325 tab ORAL PRN ×2 (06:04→12:11)
[2020-04-09 06:25] LABS: BASOPHILS % (AUTO) 1.3 % (0.0-2.0); EOSINOPHILS % (AUTO) 1.6 % (0.0-3.0); HEMATOCRIT 33.8 % (37.0-47.0); HEMOGLOBIN 12.3 G/DL (12.0-16.0); LYMPHOCYTES % (AUTO) 45.5 % (20.0-45.0); MEAN CORPUSCULAR VOLUME 90 FL (80-99); MONOCYTES % (AUTO) 6.3 % (1.0-10.0); NEUTROPHILS % (AUTO) 45.2 % (45.0-75.0); PLATELET COUNT 213 K/UL (150-450); RED BLOOD COUNT 3.76 M/UL (4.20-5.40); RED CELL DISTRIBUTION WIDTH 10.7 % (11.6-14.8)
[2020-04-09 06:58] LABS: ANION GAP 7 mmol/L (5-15); BLOOD UREA NITROGEN 5 mg/dL (7-18); CALCIUM 8.3 MG/DL (8.5-10.1); CARBON DIOXIDE 27 MMOL/L (21-32); CHLORIDE 108 MMOL/L (98-107); CREATININE 0.7 MG/DL (0.55-1.30); POTASSIUM 3.8 MMOL/L (3.5-5.1); SODIUM 142 MMOL/L (136-145)
[2020-04-09 07:09] LABS: ALANINE AMINOTRANSFERASE 18 U/L (12-78); ALBUMIN 3.3 G/DL (3.4-5.0); ALBUMIN/GLOBULIN RATIO 1.3 (1.0-2.7); ALKALINE PHOSPHATASE 35 U/L (46-116); ASPARTATE AMINO TRANSFERASE 14 U/L (15-37); BILIRUBIN,TOTAL 1.6 MG/DL (0.2-1.0)
[2020-04-09 07:10] LABS: BILIRUBIN,DIRECT 0.3 MG/DL (0.0-0.3)
[2020-04-09 07:12] LABS: PHOSPHORUS 4.1 MG/DL (2.5-4.9)
--- NOTE | 2020-04-09 07:28 | NUR ---
HAND-OFF: Report given to Marco BARNES.
--- NOTE | 2020-04-09 07:49 | NUR ---
NURSE NOTES: Received pt from CAMERON Rosas. pt was eating comfortably, No acute distress, call light w/in reach
[2020-04-09 08:00] VITALS: BP 114/60
--- NOTE | 2020-04-09 10:58 | General Progress Note ---
Progress Note Progress Note GYNECOLOGY PROGRESS NOTE Patient seen and evaluated this AM. Pain minimal, no signs or symptoms of hemodynamic instability. Tolerating PO. Vitals reviewed, WNL. Abdominal tenderness stable, no peritoneal signs. Labs reviewed, H/H stable, Beta-hCG trending down. Recommend d/c home with strict return precautions provided. Patient will follow up with me in my office on Saturday for repeat US and to follow Beta-hCG levels. Rx for [place] 5/235mg provided. Return precautions reviewed in detail. No indication for emergent surgical management given overall clinical stability and likely resolving ectopic. Diagnosis discussed with patient. She agrees with the plan of care. Cleared for discharge from JIGGER MACHINE OPERATOR perspective. Signed: MD Giovnani Naidu Carla M.D. April 09, 2020 10:58
[2020-04-09 12:00] VITALS: BP 115/77
[2020-04-09 12:06] LABS: EOSINOPHILS % (AUTO) 1.5 % (0.0-3.0); HEMATOCRIT 35.8 % (37.0-47.0); HEMOGLOBIN 12.9 G/DL (12.0-16.0); LYMPHOCYTES % (AUTO) 30.3 % (20.0-45.0); MEAN CORPUSCULAR VOLUME 90 FL (80-99); MONOCYTES % (AUTO) 6.3 % (1.0-10.0); NEUTROPHILS % (AUTO) 60.8 % (45.0-75.0); PLATELET COUNT 218 K/UL (150-450); RED BLOOD COUNT 3.98 M/UL (4.20-5.40); RED CELL DISTRIBUTION WIDTH 10.6 % (11.6-14.8); WHITE BLOOD COUNT 4.8 K/UL (4.8-10.8)
--- NOTE | 2020-04-09 13:25 | Internal Med Progress Note ---
Subjective Date of Service: April 09, 2020 Physician Name Modesto Martinez Attending Physician Sean Yarbrough MD Current Medications Medications (Trade) Dose Ordered Sig/Darren Route PRN Reason Start Time Stop Time Status Last Admin Dose Admin Acetaminophen (Tylenol) 650 mg Q4H PRN ORAL MILD PAIN/TEMP >100.5 04/08/20 21:30 05/08/20 21:29 Acetaminophen/ Hydrocodone Bitart ([place] 10/325) 1 tab Q6H PRN ORAL Severe Pain (Pain Scale 7-10) 04/08/20 21:30 04/15/20 21:29 Acetaminophen/ Hydrocodone Bitart ([place] 5/325) 1 tab Q6H PRN ORAL Moderate Pain (Pain Scale 4-6) 04/08/20 21:30 04/15/20 21:29 04/09/20 12:11 Al Hydroxide/Mg Hydroxide (Mylanta II) 30 ml Q6H PRN ORAL Dyspepsia 04/08/20 11:45 05/08/20 11:44 Diphenhydramine HCl (Benadryl) 25 mg Q6H PRN ORAL Itching/Pruritis 04/08/20 11:45 05/08/20 11:44 Famotidine (Pepcid) 20 mg BID ORAL 04/08/20 18:00 07/07/20 17:59 04/09/20 08:40 Loperamide HCl (Imodium) 4 mg Q4H PRN ORAL Diarrhea 04/08/20 11:45 05/08/20 11:44 Lorazepam (Ativan 2mg/ml 1ml) 0.5 mg Q4H PRN IV For Anxiety 04/08/20 11:45 04/15/20 11:44 Ondansetron HCl (Zofran) 4 mg Q4H PRN IVP Nausea & Vomiting 04/07/20 21:00 05/07/20 20:59 Polyethylene Glycol (Miralax) 17 gm DAILY PRN ORAL Constipation 04/08/20 11:45 05/08/20 11:44 Temazepam (Restoril) 15 mg HSPRN PRN ORAL Insomnia 04/08/20 11:45 04/15/20 11:44 Allergies: Coded Allergies: SULFA (SULFONAMIDE ANTIBIOTICS) (Verified Allergy, Severe, Rash, 04/07/20) ROS Limited/Unobtainable: No Constitutional: Reports: no symptoms HEENT: Reports: no symptoms Cardiovascular: Reports: no symptoms Respiratory: Reports: no symptoms Gastrointestinal/Abdominal: Reports: abdominal pain Genitourinary: Reports: no symptoms Neurologic/Psychiatric: Reports: no symptoms Subjective 24 YO F admitted with abdominal pain and vaginal bleeding. Now resolving aborted ectopic . Cover for Int Nick-Dr Yarbrough Objective Last Vital Signs Date Time Temp Pulse Resp B/P (MAP) Pulse Ox O2 Delivery O2 Flow Rate FiO2 04/09/20 12:00 98.7 68 21 115/77 (90) 98 04/09/20 07:53 Room Air Laboratory Tests Test 04/08/20 16:45 04/08/20 18:43 04/08/20 23:00 04/09/20 06:00 White Blood Count 4.6 K/UL (4.8-10.8) L 4.4 K/UL (4.8-10.8) L 4.0 K/UL (4.8-10.8) L Red Blood Count 3.83 M/UL (4.20-5.40) L 3.93 M/UL (4.20-5.40) L 3.76 M/UL (4.20-5.40) L Hemoglobin 12.0 G/DL (12.0-16.0) 12.4 G/DL (12.0-16.0) 12.3 G/DL (12.0-16.0) Hematocrit 37.0 % (37.0-47.0) 38.3 % (37.0-47.0) 33.8 % (37.0-47.0) L Mean Corpuscular Volume 97 FL (80-99) # 98 FL (80-99) 90 FL (80-99) # Mean Corpuscular Hemoglobin 31.3 PG (27.0-31.0) H 31.6 PG (27.0-31.0) H 32.7 PG (27.0-31.0) H Mean Corpuscular Hemoglobin Concent 32.4 G/DL (32.0-36.0) 32.3 G/DL (32.0-36.0) 36.3 G/DL (32.0-36.0) H Red Cell Distribution Width 11.9 % (11.6-14.8) 12.4 % (11.6-14.8) 10.7 % (11.6-14.8) L Platelet Count 211 K/UL (150-450) 216 K/UL (150-450) 213 K/UL (150-450) Mean Platelet Volume 9.1 FL (6.5-10.1) 8.2 FL (6.5-10.1) 8.1 FL (6.5-10.1) Neutrophils (%) (Auto) 54.1 % (45.0-75.0) 63.2 % (45.0-75.0) 45.2 % (45.0-75.0) Lymphocytes (%) (Auto) 37.1 % (20.0-45.0) 29.7 % (20.0-45.0) 45.5 % (20.0-45.0) H Monocytes (%) (Auto) 7.2 % (1.0-10.0) 5.5 % (1.0-10.0) 6.3 % (1.0-10.0) Eosinophils (%) (Auto) 0.7 % (0.0-3.0) 0.7 % (0.0-3.0) 1.6 % (0.0-3.0) Basophils (%) (Auto) 1.0 % (0.0-2.0) 0.9 % (0.0-2.0) 1.3 % (0.0-2.0) Human Chorionic Gonadotropin, Quant 471 mIU/mL (1-6) H 424 mIU/mL (1-6) H 468 mIU/mL (1-6) H Erythrocyte Sedimentation Rate 9 MM/HR (0-20) Sodium Level 142 MMOL/L (136-145) Potassium Level 3.8 MMOL/L (3.5-5.1) Chloride Level 108 MMOL/L (98-107) H Carbon Dioxide Level 27 MMOL/L (21-32) Anion Gap 7 mmol/L (5-15) Blood Urea Nitrogen 5 mg/dL (7-18) L Creatinine 0.7 MG/DL (0.55-1.30) Estimat Glomerular Filtration Rate > 60 mL/min (>60) Glucose Level 93 MG/DL (74-106) Calcium Level 8.3 MG/DL (8.5-10.1) L Phosphorus Level 4.1 MG/DL (2.5-4.9) Magnesium Level 1.9 MG/DL (1.8-2.4) Total Bilirubin 1.6 MG/DL (0.2-1.0) H Direct Bilirubin 0.3 MG/DL (0.0-0.3) Aspartate Amino Transf (AST/SGOT) 14 U/L (15-37) L Alanine Aminotransferase (ALT/SGPT) 18 U/L (12-78) Alkaline Phosphatase 35 U/L (46-116) L C-Reactive Protein, Quantitative < 0.4 mg/dL (0.00-0.90) Total Protein 5.9 G/DL (6.4-8.2) L Albumin 3.3 G/DL (3.4-5.0) L Globulin 2.6 g/dL Albumin/Globulin Ratio 1.3 (1.0-2.7) Test 04/09/20 11:50 White Blood Count 4.8 K/UL (4.8-10.8) Red Blood Count 3.98 M/UL (4.20-5.40) L Hemoglobin 12.9 G/DL (12.0-16.0) Hematocrit 35.8 % (37.0-47.0) L Mean Corpuscular Volume 90 FL (80-99) Mean Corpuscular Hemoglobin 32.5 PG (27.0-31.0) H Mean Corpuscular Hemoglobin Concent 36.2 G/DL (32.0-36.0) H Red Cell Distribution Width 10.6 % (11.6-14.8) L Platelet Count 218 K/UL (150-450) Mean Platelet Volume 7.4 FL (6.5-10.1) Neutrophils (%) (Auto) 60.8 % (45.0-75.0) Lymphocytes (%) (Auto) 30.3 % (20.0-45.0) Monocytes (%) (Auto) 6.3 % (1.0-10.0) Eosinophils (%) (Auto) 1.5 % (0.0-3.0) Basophils (%) (Auto) 1.0 % (0.0-2.0) Intake and Output 04/08/20 04/09/20 19:00 07:00 Intake Total 750 ml 850 ml Balance 750 ml 850 ml Intake Oral 600 ml IV Total 750 ml 250 ml # Voids 1 1 Objective PHYSICAL EXAMINATION: GENERAL: Patient is awake, responsive, no acute distress. HEAD AND NECK: Pupils are equal and reactive to light. Extraocular movements intact. Neck was supple. No JVD. LUNGS: Clear. No wheezes or rales. HEART: S1, S2. Regular rate and rhythm. No murmurs or gallops. ABDOMEN: Soft, nondistended. Tenderness over suprapubic area as well as right lower quadrant. No rebound tenderness. No fluid shift. EXTREMITIES: No cyanosis, clubbing, or edema NEUROLOGIC: Cranial nerves II through XII grossly normal. Motor is 5/5 in all extremities. Gait is intact. RECTAL/GENITOURINARY: Refused and deferred. PELVIC: Examination was done by the SUPPLY CHAIN GENERALIST doctor, Dr. Abbey Davila. Assessment/Plan Problem List: (1) Vaginal bleeding affecting early (2) Aborted ectopic Assessment & Plan: See SUPPLY CHAIN GENERALIST note=Dr Davila (3) Lower abdominal pain Assessment & Plan: Secondary to ectopic Status: progressing Modesto Martinez MD April 09, 2020 13:25
[2020-04-09] MEDS ORDERED: NORCO 5-325 TA1 EAC1 ORAL (15:33)
[2020-04-09 16:00] VITALS: BP 126/57
--- NOTE | 2020-04-09 18:00 | NUR ---
NURSE NOTES: discharged pt with stable condition. all discharge instruction was given verbalized understanding. she will f/u up Dr. Davila on Saturday.
[2020-04-09 18:01] LABS: BASOPHILS % (AUTO) 1.2 % (0.0-2.0); EOSINOPHILS % (AUTO) 1.5 % (0.0-3.0); HEMATOCRIT 38.6 % (37.0-47.0); HEMOGLOBIN 12.9 G/DL (12.0-16.0); LYMPHOCYTES % (AUTO) 30.1 % (20.0-45.0); MEAN CORPUSCULAR VOLUME 94 FL (80-99); MONOCYTES % (AUTO) 5.7 % (1.0-10.0); NEUTROPHILS % (AUTO) 61.5 % (45.0-75.0); PLATELET COUNT 248 K/UL (150-450); RED BLOOD COUNT 4.12 M/UL (4.20-5.40); RED CELL DISTRIBUTION WIDTH 11.7 % (11.6-14.8); WHITE BLOOD COUNT 6.2 K/UL (4.8-10.8)
[2020-04-09] MEDS ORDERED: D5NS 1000ml IV ONE (18:19)
--- NOTE | 2020-04-11 09:29 | NUR ---
*-* INSURANCE *-* ALL AVAILABLE CLINICALS AND REVIEWS HAVE BEEN FAXED TO: [employer] REF# [id number] P: [phone] F: [phone] Addendum: 04/11/20 at 0944 by GLENN SEQUEIRA CM NO DISCHARGE SUMMARY IN THE SYSTEM UNABLE TO FAX
--- NOTE | 2020-04-12 13:51 | Discharge Summary ---
Discharge Summary Discharge Summary _ DATE OF ADMISSION: 04/07/2020 DATE OF DISCHARGE: 04/09/2020 DISCHARGED BY: Dr. Yarbrough REASON FOR ADMISSION: 24 years old female with no past medical or surgical history , presented to the hospital complaining about lower abdominal pain associated with vaginal bleeding. Patient was diagnosed with 6 week last week. In the past 2 days patient noted vaginal spotting associated with lower abdominal pain , which became more severe . Pain nonradiating , not improved . She reported earlier nausea , which resolved Laboratory work-up revealed WBC 5.1, stable hemoglobin and hematocrit. Urinalysis revealed no evidence of urinary tract infection. Obstetric ultrasound revealed no evidence of intrauterine , with differential considerations including spontaneous very early or ectopic . Material surrounding the right ovary may represent blood, raising concern for possible ruptured ectopic in this area CONSULTANTS: critical care Dr. Olivo TINWARE LITHOGRAPH PRESS OPERATOR Dr. Davila [facility] COURSE: Patient admitted to medical surgical floor. Patient started on the IV fluids. DVT prophylaxis with SCD provided. CASTING OPERATOR consult was requested. Serial beta- hCG were performed, trending down. Pain management was addressed as needed. Hemoglobin and hematocrit remained stable. Patient had abdominal tenderness , but no peritoneal signs. Pain minimal. No evidence of hemodynamic instability. Vital signs stable. Patient was able to tolerate oral diet. CASTING OPERATOR recommended discharge with strict return precautions. Patient to follow-up in the office as scheduled by CASTING OPERATOR to repeat ultrasound and follow-up with beta-hCG levels. Prescription for analgesic o provided. No indication for emergent surgical management, given overall clinical stability and likely resolving ectopic. FINAL DIAGNOSES: Vaginal bleeding affecting early Aborted ectopic Probable spontaneous DISCHARGE MEDICATIONS: See Medication Reconciliation list. DISCHARGE INSTRUCTIONS: Patient was discharged home. Follow-up with CASTING OPERATOR as scheduled on Saturday. I have been assigned to dictate discharge summary for this account. I was not involved in the patient's management. Lis Araya NP April 12, 2020 13:51
--- NOTE | 2020-04-12 15:29 | NUR ---
*-* INSURANCE *-* DISCHARGE SUMMARY HAS BEEN FAXED TO: [employer] REF# [id number] P: [phone] F: [phone]
== END 2020-04-09 18:20 | disposition home or self-care (01) | DRG 833 ==
LOC: EMR 10:03 → 4E 13:50 → EDBEDREQ 17:00 → 3E 04-08 15:05
DX: O00.90 Unspecified ectopic pregnancy without intrauterine pregnancy (principal); Z88.2 Allergy status to sulfonamides; O03.9 Complete or unspecified spontaneous abortion without complication
CPT/HCPCS: 36415; 76801; 76817; 80053; 81003; 81025; 82248; 83735; 84100; 84702; 85025; 85610; 85651; 85730; 86140; 86850; 86900; 86901; 96360; 99291; J7030